=== PATIENT | male | born 1980 | race Caucasian/White ===

== ENCOUNTER 2020-04-03 08:47 | Emergency (ER) | payer SELFPAY ==
--- NOTE | 2020-04-03 08:57 | NUR ---
PATIENT LEFT WITHOUT BEING SEEN BY DR. TIRADO. NO FURTHER CARE PROVIDED FOR PATIENT.
== END 2020-04-03 08:57 | disposition left against medical advice (07) ==
LOC: MED 08:47
DX: R50.9 Fever, unspecified (principal); Z53.21 Procedure and treatment not carried out due to patient leaving prior to being seen by health care provider